=== PATIENT | male | born 1985 | race African-American/Black ===

== ENCOUNTER → 2016-06-29 | Outpatient (REF) | payer OTHER | LOC: M LAB REF 10:10 | PROVIDERS: ATTEND Physician Assistant Medical | DX: Z20.2 Contact with and (suspected) exposure to infections with a predominantly sexual mode of transmission (principal) ==

== ENCOUNTER 2016-07-13 15:00 | Outpatient (RCR) | payer MEDICAID | END 2016-07-17 | disposition home or self-care (01) | LOC: M OUTALCOH 15:00 | PROVIDERS: ATTEND Psychiatry & Neurology Psychiatry | DX: F12.20 Cannabis dependence, uncomplicated (principal); F17.200 Nicotine dependence, unspecified, uncomplicated ==

== ENCOUNTER 2016-08-09 16:00 | Outpatient (RCR) | payer MEDICAID | END 2016-08-14 | LOC: M OUTALCOH 16:00 | PROVIDERS: ATTEND Psychiatry & Neurology Psychiatry | DX: F12.20 Cannabis dependence, uncomplicated (principal); F17.200 Nicotine dependence, unspecified, uncomplicated ==

== ENCOUNTER 2016-09-13 10:44 | Outpatient (RCR) | payer MEDICAID | END 2016-09-14 | LOC: M OUTALCOH 10:44 | PROVIDERS: ATTEND Psychiatry & Neurology Psychiatry | DX: F12.20 Cannabis dependence, uncomplicated (principal); F17.200 Nicotine dependence, unspecified, uncomplicated ==

== ENCOUNTER 2016-10-08 16:00 | Outpatient (RCR) | payer MEDICAID | END 2016-10-14 | LOC: M OUTALCOH 16:00 | PROVIDERS: ATTEND Psychiatry & Neurology Psychiatry | DX: F12.20 Cannabis dependence, uncomplicated (principal); F17.200 Nicotine dependence, unspecified, uncomplicated ==

== ENCOUNTER → 2016-10-15 | Outpatient (CLI) | payer OTHER | LOC: M LAB 11:07 | PROVIDERS: ATTEND Student in an Organized Health Care Education/Training Program | DX: Z11.4 Encounter for screening for human immunodeficiency virus [HIV] (principal); M25.531 Pain in right wrist ==

== ENCOUNTER 2016-11-08 15:00 | Outpatient (RCR) | payer OTHER | END 2016-11-14 | LOC: M OUTALCOH 15:00 | PROVIDERS: ATTEND Psychiatry & Neurology Psychiatry | DX: F12.20 Cannabis dependence, uncomplicated (principal); F17.200 Nicotine dependence, unspecified, uncomplicated ==

== ENCOUNTER 2016-12-10 16:00 | Outpatient (RCR) | payer MEDICAID | END 2016-12-14 | LOC: M OUTALCOH 16:00 | PROVIDERS: ATTEND Psychiatry & Neurology Psychiatry | DX: Z13.9 Encounter for screening, unspecified (principal); F12.20 Cannabis dependence, uncomplicated; F17.200 Nicotine dependence, unspecified, uncomplicated ==

== ENCOUNTER → 2017-04-04 | Outpatient (REF) | payer MEDICAID | LOC: M LAB REF 14:44 | PROVIDERS: ATTEND Physician Assistant | DX: R30.0 Dysuria (principal) ==

== ENCOUNTER → 2017-07-09 | Outpatient (CLI) | payer MEDICAID | LOC: M OUTALCOH 07:52 | DX: Z13.9 Encounter for screening, unspecified (principal); F14.10 Cocaine abuse, uncomplicated ==

== ENCOUNTER 2017-07-25 15:00 | Outpatient (RCR) | payer MEDICAID | END 2017-08-14 | LOC: M OUTALCOH 08-01 15:00 | DX: F12.20 Cannabis dependence, uncomplicated (principal); F17.200 Nicotine dependence, unspecified, uncomplicated; F14.10 Cocaine abuse, uncomplicated ==

== ENCOUNTER → 2017-11-28 | Outpatient (CLI) | payer MEDICAID | LOC: M OUTALCOH 07:50 | DX: F10.10 Alcohol abuse, uncomplicated (principal) ==

== ENCOUNTER → 2017-12-11 | Outpatient (REF) | payer MEDICAID ==
[2017-12-11 14:55] LABS: CHLAMYDIA DNA AMPLIFICATION NEGATIVE (NEGATIVE); GC DNA AMPLIFICATION NEGATIVE (NEGATIVE)
== END ==
LOC: M LAB REF 13:12
DX: R36.9 Urethral discharge, unspecified (principal)
CPT/HCPCS: 87591

== ENCOUNTER 2017-12-12 14:47 | Outpatient (RCR) | payer MEDICAID | END 2017-12-14 | LOC: M OUTALCOH 14:47 | DX: F12.20 Cannabis dependence, uncomplicated (principal); F17.200 Nicotine dependence, unspecified, uncomplicated; F14.20 Cocaine dependence, uncomplicated; F10.20 Alcohol dependence, uncomplicated ==

== ENCOUNTER 2018-01-06 09:47 | Emergency (ER) | payer MEDICAID ==
[2018-01-06] MEDS: cefTRIAXone SOD 250 MG VIAL (J0696) IM (12:00)
[2018-01-06] MEDS ORDERED: LIDOCAINE 1% MDV 20ML VIAL As Ordered (12:10)
[2018-01-06] MEDS: AZITHROMYCIN 250 MG TAB PO (12:16)
[2018-01-06 13:31] LABS: HEPATITIS B SURFACE ANTIBODY POSITIVE (POSITIVE)
[2018-01-06 13:42] LABS: HEPATITIS B SURFACE ANTIGEN NEGATIVE (NEGATIVE)
[2018-01-06 13:50] LABS: CHLAMYDIA DNA AMPLIFICATION NEGATIVE (NEGATIVE); GC DNA AMPLIFICATION NEGATIVE (NEGATIVE)
[2018-01-06 14:08] LABS: HEPATITIS C VIRUS ABY INDEX 0.3 INDEX (<0.8)
[2018-01-06 14:09] LABS: HIV 1&2 SCREEN CENTAUR NEGATIVE (NEGATIVE)
== END 2018-01-06 12:28 | disposition home or self-care (01) ==
LOC: M ED 09:47
DX: Z20.2 Contact with and (suspected) exposure to infections with a predominantly sexual mode of transmission (principal); F17.210 Nicotine dependence, cigarettes, uncomplicated
CPT/HCPCS: J0696

== ENCOUNTER 2018-03-06 09:46 | Emergency (ER) | payer MEDICAID | END 2018-03-06 12:19 | disposition home or self-care (01) | LOC: M ED 12:19 | DX: S01.511A Laceration without foreign body of lip, initial encounter (principal); L08.9 Local infection of the skin and subcutaneous tissue, unspecified; Y04.0XXA Assault by unarmed brawl or fight, initial encounter; Y92.511 Restaurant or cafe as the place of occurrence of the external cause; L25.9 Unspecified contact dermatitis, unspecified cause | CPT/HCPCS: 99283 ==

== ENCOUNTER 2018-03-31 13:38 | Emergency (ER) | payer MEDICAID ==
[2018-03-31 19:35] LABS: CHLAMYDIA DNA AMPLIFICATION NEGATIVE (NEGATIVE); GC DNA AMPLIFICATION NEGATIVE (NEGATIVE)
== END 2018-03-31 17:28 | disposition home or self-care (01) ==
LOC: M ED 13:38
DX: Z20.2 Contact with and (suspected) exposure to infections with a predominantly sexual mode of transmission (principal); B86 Scabies
CPT/HCPCS: 86780

== ENCOUNTER 2018-08-18 12:35 | Emergency (ER) | payer MEDICAID, OTHER, SELFPAY ==
[~2018-08-18] VITALS: Ht 177.8 cm; Wt 129.6 kg
[~2018-08-18 12:35] MED LIST: AUGM875T28 PO; ELIM5CRE2 TOP; IBUP-1022 PO; MAGICMW SSP; PRED20TA PO
[2018-08-18 12:36] VITALS: BP 162/98
[2018-08-18] MEDS ORDERED: COLD MEDS (12:41)
[2018-08-18] MEDS ORDERED: IBUPROFEN 800 MG TAB PO ONE (14:15)
[2018-08-18] MEDS ORDERED: ACETAMINOPHEN 325 MG TAB PO ONE (14:15)
--- NOTE | 2018-08-18 14:35 | REP ---
Chest x-ray: Two views. History: Cough and fever. Comparison study: None. Findings: There is pleuroparenchymal scarring or tenting along the left hemidiaphragm at the left base. Lungs are otherwise well inflated and clear. Pleural angles are sharp. Heart size is normal. Pulmonary vasculature is not increased. There are two surgical clips superimposed on the anterior chest on the lateral view. Impression: Post thoracotomy fibrosis left chest. Otherwise no acute disease. Electronically Signed by Sonido Quiroga MD 08/18/2018 02:28 P
[2018-08-18 14:46] LABS: INFLUENZA A AMPLIFICATION NEGATIVE (NEGATIVE); INFLUENZA B AMPLIFICATION NEGATIVE (NEGATIVE)
[2018-08-18 15:05] LABS: CHLAMYDIA DNA AMPLIFICATION NEGATIVE (NEGATIVE); GC DNA AMPLIFICATION NEGATIVE (NEGATIVE)
[2018-08-18] MEDS ORDERED: AUGM875T28 PO (15:27)
[2018-08-18] MEDS ORDERED: FLON1SPR NARES (15:28)
[2018-08-18 15:39] LABS: HIV 1&2 SCREEN CENTAUR NEGATIVE (NEGATIVE)
== END 2018-08-18 15:32 | disposition home or self-care (01) ==
LOC: M ED 12:35
DX: J01.90 Acute sinusitis, unspecified (principal); Z11.3 Encounter for screening for infections with a predominantly sexual mode of transmission; Z87.828 Personal history of other (healed) physical injury and trauma; F17.200 Nicotine dependence, unspecified, uncomplicated

== ENCOUNTER 2018-12-05 16:03 | Emergency (ER) | payer SELFPAY ==
[~2018-12-05] VITALS: Ht 177.8 cm; Wt 95.5 kg
[~2018-12-05 16:03] MED LIST changes: +COLD MEDS; +FLON1SPR NARES
[2018-12-05 18:39] LABS: CHLAMYDIA DNA AMPLIFICATION POSITIVE (NEGATIVE); GC DNA AMPLIFICATION NEGATIVE (NEGATIVE)
[2018-12-05] MEDS ORDERED: LIDOCAINE 1% SDV 5 ML VIAL DILUENT ONE ×2 (20:15)
[2018-12-05] MEDS ORDERED: cefTRIAXone SOD 500 MG VIAL (J0696) IM ONE (20:15)
[2018-12-05] MEDS ORDERED: DOXY100C37 PO (20:19)
[2018-12-05] MEDS ORDERED: cefTRIAXone SOD 1 GM VIAL (J0696) As Ordered ONE (21:01)
[2018-12-05 21:18] VITALS: BP 132/74
== END 2018-12-05 21:19 | disposition home or self-care (01) ==
LOC: M ED 16:03
DX: A56.01 Chlamydial cystitis and urethritis (principal); Z87.891 Personal history of nicotine dependence
CPT/HCPCS: 87491; 87591; 96372; 99283; J0696

== ENCOUNTER → 2019-07-21 | Outpatient (REF) | payer OTHER ==
[~2019-07-21] MED LIST changes: +DOXY100C37 PO
[2019-07-21 20:03] LABS: CHLAMYDIA DNA AMPLIFICATION NEGATIVE (NEGATIVE); GC DNA AMPLIFICATION NEGATIVE (NEGATIVE)
[2019-07-24 00:07] LABS: HSV IgM TYPES 1&2 <0.91 Ratio (0.00-0.90)
== END ==
LOC: M SFHCLERA 13:56
PROVIDERS: ATTEND Family Medicine
DX: A64 Unspecified sexually transmitted disease (principal)

== ENCOUNTER 2019-08-10 11:45 | Outpatient (RCR) | payer OTHER | END 2019-08-15 | LOC: M PT 11:45 | PROVIDERS: ATTEND Family Medicine | DX: Z47.89 Encounter for other orthopedic aftercare (principal); M25.561 Pain in right knee ==

== ENCOUNTER → 2019-09-15 | Outpatient (RCR) | payer OTHER | LOC: M PT 08-17 13:03 | PROVIDERS: ATTEND Family Medicine | DX: M25.561 Pain in right knee (principal) ==

== ENCOUNTER → 2019-09-28 | Outpatient (REF) | payer OTHER ==
[2019-09-28 21:47] LABS: CHLAMYDIA DNA AMPLIFICATION NEGATIVE (NEGATIVE); GC DNA AMPLIFICATION NEGATIVE (NEGATIVE)
== END ==
LOC: M SFHCLERA 15:22
PROVIDERS: ATTEND Family Medicine
DX: R30.9 Painful micturition, unspecified (principal)

== ENCOUNTER → 2019-10-01 | Outpatient (REF) | payer OTHER ==
[2019-10-01 20:20] LABS: APPEARANCE, URINE CLEAR (CLEAR); BACTERIA, URINE AUTO NEGATIVE (NEGATIVE); BILIRUBIN, URINE AUTO NEGATIVE (NEGATIVE); BLOOD, URINE BLOOD NEGATIVE (NEGATIVE); COLOR, URINE YELLOW (YELLOW); GLUCOSE, URINE (UA) AUTO NEGATIVE (NEGATIVE); KETONE, URINE AUTO NEGATIVE (NEGATIVE); LEUKOCYTE ESTERASE, URINE AUTO NEGATIVE (NEGATIVE); NITRITE, URINE AUTO NEGATIVE (NEGATIVE); PROTEIN, URINE AUTO NEGATIVE (NEGATIVE); RBC, URINE AUTO 2 /HPF (0-3); SPECIFIC GRAVITY URINE AUTO 1.014 (1.002-1.035); SQUAMOUS EPITHELIAL CELL UR AU 0 /HPF (0-6); UROBILINOGEN, URINE AUTO 0.2 mg/dL (0.0-2.0); WBC, URINE AUTO 5 /HPF (0-3)
[2019-10-01 22:11] LABS: CHLAMYDIA DNA AMPLIFICATION NEGATIVE (NEGATIVE); GC DNA AMPLIFICATION NEGATIVE (NEGATIVE)
== END ==
LOC: M SFHCLERA 19:59
PROVIDERS: ATTEND Family Medicine
DX: R30.9 Painful micturition, unspecified (principal)

== ENCOUNTER → 2019-10-12 | Outpatient (REF) | payer OTHER ==
[2019-10-12 12:06] LABS: APPEARANCE, URINE CLEAR (CLEAR); BACTERIA, URINE AUTO NEGATIVE (NEGATIVE); BILIRUBIN, URINE AUTO NEGATIVE (NEGATIVE); BLOOD, URINE BLOOD NEGATIVE (NEGATIVE); COLOR, URINE YELLOW (YELLOW); GLUCOSE, URINE (UA) AUTO NEGATIVE (NEGATIVE); KETONE, URINE AUTO NEGATIVE (NEGATIVE); LEUKOCYTE ESTERASE, URINE AUTO 1+ (NEGATIVE); MUCUS, URINE SMALL (NEGATIVE); NITRITE, URINE AUTO NEGATIVE (NEGATIVE); PROTEIN, URINE AUTO NEGATIVE (NEGATIVE); RBC, URINE AUTO 2 /HPF (0-3); SPECIFIC GRAVITY URINE AUTO 1.018 (1.002-1.035); SQUAMOUS EPITHELIAL CELL UR AU 0 /HPF (0-6); UROBILINOGEN, URINE AUTO 0.2 mg/dL (0.0-2.0); WBC, URINE AUTO 25 /HPF (0-3)
[2019-10-12 14:11] LABS: CHLAMYDIA DNA AMPLIFICATION NEGATIVE (NEGATIVE); GC DNA AMPLIFICATION NEGATIVE (NEGATIVE)
== END ==
LOC: M SFHCLERA 11:44
PROVIDERS: ATTEND Family Medicine
DX: R36.9 Urethral discharge, unspecified (principal)

== ENCOUNTER → 2020-01-28 | Emergency (ER) | payer OTHER | END | disposition home or self-care (01) | LOC: M ED 19:35 | DX: Z03.818 Encounter for observation for suspected exposure to other biological agents ruled out (principal) | CPT/HCPCS: 99283; U0002 ==